=== PATIENT | female | born 1950 | race Caucasian/White ===

== ENCOUNTER 2016-08-25 12:53 | Emergency (ER) | payer MEDICARE ==
[2016-08-25 13:14] VITALS: BP 135/62
--- NOTE | 2016-08-25 13:38 | UC ---
Knee Pain HPI - HPI Summary HPI Summary: right knee pain and swelling x 2 days no known injury , - History of Current Complaint Chief Complaint: UCLowerExtremity Stated Complaint: RIGHT KNEE PAIN Time Seen by Provider: 08/25/16 13:28 Hx Obtained From: Patient Onset/Duration: Gradual Onset, Lasting Days - 2, Still Present Severity Initially: Moderate Severity Currently: Severe Character: Aching Aggravating Factor(s): Movement, Weight Bearing, Prolonged Standing, Stairs Alleviating Factor(s): Rest, Position, Cold Associated Signs And Symptoms: Positive: Swelling. Negative: Redness, Bruising , Fever, Weakness, Numbness, Tingling - Allergies/Home Medications Allergies/Adverse Reactions: Allergies Allergy/AdvReac Type Severity Reaction Status Date / Time Codeine Allergy GI Upset Verified 08/25/16 13:14 anesthesia Allergy vomitting Uncoded 08/25/16 13:16 ane AdvReac violently Uncoded 08/25/16 13:16 ill Home Medications: Home Medications Levothyroxine TAB* [Synthroid 125 MCG TAB*] 08/25/16 [History] Sitagliptin/Metform 50/500(NF) [Janumet 50/500 (NF)] 08/25/16 [History] PMH/Surg Hx/FS Hx/Imm Hx Previously Healthy: Yes - Surgical History Surgical History: Yes Surgery Procedure, Year, and Place: Lymphectomy L arm - Family History Known Family History: Negative: Diabetes - Social History Alcohol Use: None Substance Use Type: None Smoking Status (MU): Former Smoker Review of Systems Constitutional: Negative Skin: Negative Eyes: Negative ENT: Negative Respiratory: Negative Musculoskeletal: Arthralgia - right knee pain All Other Systems Reviewed And Are Negative: Yes Physical Exam Triage Information Reviewed: Yes Appearance: Well-Appearing, No Pain Distress, Well-Nourished Vital Signs: Initial Vital Signs Temp 100.6 F 08/25/16 13:08 Pulse 95 08/25/16 13:08 Resp 18 08/25/16 13:08 BP 135/62 08/25/16 13:08 Pulse Ox 98 08/25/16 13:08 Vital Signs Reviewed: Yes Eyes: Positive: Conjunctiva Clear ENT: Positive: Normal ENT inspection, Hearing grossly normal, Pharynx normal Neck: Positive: Supple, Nontender, No Lymphadenopathy Respiratory: Positive: Chest non-tender, Lungs clear, Normal breath sounds Cardiovascular: Positive: RRR, No Murmur, Pulses Normal Musculoskeletal: Positive: Other: - right knee: + swelling, effusion , + diffuse tenderness, sever pain with flexion Knee Pain Course/Dx - Differential Dx/Diagnosis Provider Diagnoses: right knee pain. right knee effusion Discharge - Discharge Plan Condition: Stable Disposition: HOME Patient Education Materials: Swollen Knee Joint (ED) Referrals: Lizbeth Silverman NP [Primary Care Provider] - Gaetano Christopher MD [Medical Doctor] - As Soon As Possible
--- NOTE | 2016-08-25 13:55 | RAD ---
INDICATION: Atraumatic right knee pain and swelling COMPARISON: None TECHNIQUE: AP, lateral, tunnel, and sunrise views were obtained. FINDINGS: There is minor patellofemoral spurring. There is a small suprapatellar joint effusion. The bony structures, joint spaces, and soft tissues are otherwise unremarkable. IMPRESSION: MINOR PATELLOFEMORAL OSTEOARTHRITIS AND SMALL JOINT EFFUSION
== END 2016-08-25 14:23 | disposition home or self-care (01) ==
LOC: UCCORT 12:53
DX: M25.561 Pain in right knee (principal); M25.461 Effusion, right knee; Z88.4 Allergy status to anesthetic agent; Z88.5 Allergy status to narcotic agent; Z87.891 Personal history of nicotine dependence
CPT/HCPCS: 99211; G0463

== ENCOUNTER 2017-06-23 16:48 | Emergency (ER) | payer MEDICARE ==
--- OUTSIDE RECORDS SUMMARY | 2017-06-23 17:05 | XMS REPORT ---
:1950 External Reference #:[id number] Author Organization [facility] Address [address] [place] [address] Phone [phone] Care Team Providers Name Role Phone Areli Lan M.D. 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 Primary Care Physician Unavailable Payers Type Date Identification Numbers Payment Provider Subscriber Medicare Primary Policy Number: [id number] Medicare Adriana Kolb PayID: [id number] [address] [place] [address] Medigap Part B Policy Number: [id number] [facility] Adriana Kolb PayID: [id number] [address] [place] [address] Medigap Part B Effective: Policy Number: Ami Johnson 2015 [id number] Medicare [place] Expires: 2017 PayID: [id number] [address] [address] [place] [address] Problems Date Description Provider Status Onset: 11/25/2010 Type 2 diabetes mellitus DaveEUGENIE Keating Active Onset: 11/25/2010 Hypothyroidism EUGENIE Worley Active Onset: 11/25/2010 Malignant neoplasm of lower-outer Dave WhiteriverEUGENIE Active quadrant of female breast Onset: 11/05/2014 Gastroesophageal reflux disease Staci Barraza PA-C Active Onset: 11/05/2014 H/O: peptic ulcer Staci Barraza PA-C Active Note: 1980 Onset: 11/05/2014 Gout Staci Barraza PA-C Active Onset: 11/05/2014 Obesity Staci Barraza PA-C Active Onset: 11/25/2010 Chronic peptic ulcer without Dave Whiteriver, RPAC Inactive hemorrhage AND without perforation but with obstruction Inactive: 11/28/2014 Onset: 12/12/2014 Screening for malignant neoplasm of Jesse Earl M.D. Inactive colon Inactive: 06/12/2016 Note: colo to cecum 2014 Onset: 11/25/2010 Gout Dave Whiteriver, RPAC Inactive Inactive: 06/12/2016 Onset: 11/25/2010 Low back pain Dave Whiteriver, RPAC Resolved Resolved: 06/12/2016 Onset: 12/11/2015 Sprain of medial collateral ligament of Pedro Leone M.D. Resolved knee Resolved: 06/12/2016 Onset: 11/20/2015 Current tear of medial cartilage AND/OR Pedro Leone M.D. 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 Cigarette Use Never Smoked Cigarettes ETOH Use Denies alcohol use Smoking Patient is a former smoker Allergies, Adverse Reactions, Alerts Date Description Reaction Status Severity Comments 07/25/2014 Codeine active 07/25/2014 Keflex active 07/25/2014 Boniva active 07/25/2014 Aspirin active 07/25/2014 Quinine active 11/20/2015 Perfume active 11/20/2015 Chemicals active Medications Medication Date Status Form Strength Qnty SIG Indications Ordering Provider Freestyle Lite 05/12 Active Strips 100un Test its Fingerstick Sandeep Lan Blood Sugar In Am Fasting Metformin HCL 02/10 Active Tablets 500mg 180ta take one E11.9 bs tablet by Sandeep Lan mouth twice a day Levothyroxine 02/21 Active Tablets 112mcg 90tab take one E03.9 s tablet by Sandeep Lan mouth once daily Cinnamon Active 350mg twice a day Unknown /0000 [place] 3 00 Active Capsules 1000mg 1 cap by Unknown /0000 mouth every daily Complex Active 1 qd Unknown Vitamin /0000 Tradjenta 02/10 Hx Tablets 5mg 90tab 1 by mouth E11.9 s every day Sandeep Lan - 06/02 Azithromycin 09/02 Hx Tablets 250mg 6tabs 1 tab take 2 J15.9 tabs x daily Sandeep Lan - days then 1 12/16 for 4 Benzonatate 08/11 Hx Capsules 200mg 45cap 1 by mouth J06.Kim Singleton s three times Sandeep Lan - a day as 02/10 needed cough Guaifenesin 08/11 Hx Tablets 400mg 30tab 1 tab by Madai06Shelley BrownAreli s mouth every Sandeep Lan - 6 hours as 09/02 needed cough Vitamin D3 06/16 Hx Tablets 400Unit 1 by mouth Areli every day Sandeep Lan - 06/16 Vitamin D3 06/12 Hx Capsules [id number] 8caps 1 cap by E55.9 Areli mouth every Sandeep Lan - week x 8 Vitamin D3 05/20 Hx Capsules [id number] 4caps 1 tab by Areli Alanna mouth every Sandeep Lan - weekly 06/16 Ranitidine HCL 03/27 Hx Tablets 150mg 60tab take one K21.9 s tablet by Sandeep Lan - mouth twice 06/16 a day /2016 Azithromycin 07/28 Hx Tablets 250mg 6tabs 2 today then J02.9 1 a day for Narda, - 4 days M.DLiset 08/02 Freestyle 07/21 Hx Misc 100un use to check [facility] /2016 its blood sugar Narda, - dx: e11.9 MLisetDLiset 11/19 Lisinopril 06/09 Hx Tablets 2.5mg 90tab 1 by mouth E11.9 s every day Nahum Samaniego M.D. 11/05 Benzonatate 04/08 Hx Capsules 200mg 14cap one three R05 s times a day Narda, - as needed M.D. 04/19 for cough /2016 Azithromycin 04/08 Hx Tablets 250mg 6tabs 2 today then J04.0 1 a day for Narda - 4 days M.D. 04/13 Red Yeast Rice 12/10 Hx Tablets 600mg one a day E78.0 Hannah /2015 Nahum Samaniego M.D. 04/19 Vitamin B 12/10 Hx Tablets 1 by mouth E78.0 Hannah Complex every day Narda - M.D. 11/19 Freestyle Lite 08/08 Hx Strips 100un test blood E11.9 Hannah Test /2014 its sugar twice Nahum Samaniego a day M.D. 11/19 Azithromycin 07/25 Hx Tablets 250mg 11tab 2 tabs by 461.9 Hannah /2015 s mouth today Narda, then one tab M.D. by mouth daily Losartan 06/06 Hx Tablets 25mg 90tab 1 by mouth Sagar Samaniego s every day Nahum Young MD 11/06 Janumet 10/27 Hx Tablets 50-500mg 180ta 1 by mouth E11.9 Areli bs every day Sandeep Lan - 02/10 Aluminum-Magne Hx Suspension 200-200-2 20ml by Unknown sium-[place] /0000 0mg/5ML mouth q2 ne - hours as 11/06 needed burn Caltrate 600+D Hx Chewtabs 600-400mg 2 by mouth Unknown /0000 -Unit every day - 12/30 Womens 00/00 Hx Tablets once a day Unknown Multivitamin /0000 - 12/30 Prevident 5000 Hx Paste 1.1% Unknown Booster Plus /0000 - 09/02 Vitamin B-12 Hx Tablets 500mcg 1 by mouth Unknown /0000 every day - 05/12 Vitamin D3 Hx Capsules 2000Unit 2 caps daily E55.9 Unknown /0000 - 09/02 Immunizations CPT Code Status Date Vaccine Lot # [id number] Given 02/10/2017 Td Preservative Free For Use In Individuals 7 Yrs [id number] Or Older 11457 Given 12/30/2016 Pneumovax Injection [id number] Q2038 Given 12/18/2015 Influenza Vaccine (Fluzone) Age 3 And Older [id number] 72531 Given 06/10/2015 Pneumococcal Conjugate Vaccine 13 Valent For [id number] Intramuscular Use 73669 Given 10/07/2011 Zoster Vaccine Live Injection 52718 Given 01/08/2009 Pneumovax Injection 56711 Given 01/04/2007 flu vaccination 33183 Given 09/01/2006 Tdap injection 76112 Given 02/27/2004 flu vaccination 18935 Given 11/07/1996 Tetnus Injection 56121 Refused 03/08/2017 Influenza Virus Vaccine Quadrivalent Iiv4 Split Preser Free Id Vital Signs Date Vital Result Comment 06/02/2017 BP Systolic Sitting Left Arm 142 mmHg BP Diastolic Sitting Left Arm 78 mmHg Height 65 inches 5'5" Weight 173.50 lb BMI (Body Mass Index) 28.9 kg/m2 BSA (Body Surface Area) 1.86 m2 [place] body weight in kilograms 57 05/12/2017 BP Systolic Sitting Left Arm 126 mmHg BP Diastolic Sitting Left Arm 70 mmHg Height 63 inches 5'3" Weight 177.12 lb BMI (Body Mass Index) 31.4 kg/m2 BSA (Body Surface Area) 1.84 m2 [place] body weight in kilograms 52 03/08/2017 BP Systolic Sitting Left Arm 138 mmHg BP Diastolic Sitting Left Arm 74 mmHg Height 63 inches 5'3" Weight 175.38 lb BMI (Body Mass Index) 31.1 kg/m2 BSA (Body Surface Area) 1.83 m2 [place] body weight in kilograms 52 02/16/2017 BP Systolic Sitting Right Arm 152 mmHg BP Diastolic Sitting Right Arm 84 mmHg Body Temperature 97.3 F Height 63 inches 5'3" Weight 173.50 lb BMI (Body Mass Index) 30.7 kg/m2 BSA (Body Surface Area) 1.82 m2 [place] body weight in kilograms 52 02/10/2017 BP Systolic Sitting Left Arm 146 mmHg BP Diastolic Sitting Left Arm 74 mmHg Height 63 inches 5'3" Weight 173.00 lb BMI (Body Mass Index) 30.6 kg/m2 BSA (Body Surface Area) 1.82 m2 [place] body weight in kilograms 52 09/02/2016 BP Systolic Sitting Left Arm 134 mmHg BP Diastolic Sitting Left Arm 80 mmHg Body Temperature 97.7 F Height 63 inches 5'3" Weight 168.00 lb BMI (Body Mass Index) 29.8 kg/m2 BSA (Body Surface Area) 1.80 m2 [place] body weight in kilograms 52 08/11/2016 BP Systolic Sitting Left Arm 142 mmHg BP Diastolic Sitting Left Arm 90 mmHg Body Temperature 97.7 F Heart Rate 100 /min Respiratory Rate 24 /min Height 63 inches 5'3" Weight 167.25 lb BMI (Body Mass Index) 29.6 kg/m2 BSA (Body Surface Area) 1.79 m2 [place] body weight in kilograms 52 06/16/2016 BP Systolic Sitting Left Arm 130 mmHg BP Diastolic Sitting Left Arm 76 mmHg Body Temperature 97.3 F Heart Rate 90 /min Respiratory Rate 12 /min Height 63 inches 5'3" Weight 176.25 lb BMI (Body Mass Index) 31.2 kg/m2 BSA (Body Surface Area) 1.83 m2 05/14/2016 BP Systolic Sitting Left Arm 112 mmHg BP Diastolic Sitting Left Arm 62 mmHg Height 63 inches 5'3" Weight 175.00 lb BMI (Body Mass Index) 31.0 kg/m2 BSA (Body Surface Area) 1.83 m2 [place] body weight in kilograms 52 03/27/2016 BP Systolic 118 mmHg BP Diastolic 60 mmHg Heart Rate 89 /min Respiratory Rate 18 /min Height 63 inches 5'3" Weight 178.00 lb BMI (Body Mass Index) 31.5 kg/m2 BSA (Body Surface Area) 1.84 m2 [place] body weight in kilograms 52 O2 % BldC Oximetry 98 % 02/26/2016 Height 63 inches 5'3" Weight 177.00 lb BMI (Body Mass Index) 31.4 kg/m2 BSA (Body Surface Area) 1.84 m2 [place] body weight in kilograms 52 01/22/2016 Height 63 inches 5'3" Weight 175.00 lb BMI (Body Mass Index) 31.0 kg/m2 BSA (Body Surface Area) 1.83 m2 [place] body weight in kilograms 52 12/18/2015 BP Systolic Sitting Left Arm 130 mmHg BP Diastolic Sitting Left Arm 78 mmHg Heart Rate 88 /min Respiratory Rate 20 /min Height 63 inches 5'3" Weight 171.00 lb BMI (Body Mass Index) 30.3 kg/m2 BSA (Body Surface Area) 1.81 m2 [place] body weight in kilograms 52 11/20/2015 BP Systolic 112 mmHg BP Diastolic 70 mmHg Height 62.0 inches 5'2" Weight 171.00 lb BMI (Body Mass Index) 31.3 kg/m2 BSA (Body Surface Area) 1.79 m2 [place] body weight in kilograms 50 11/06/2015 BP Systolic Sitting Right Arm 5 mmHg BP Diastolic Sitting Right Arm 3 mmHg Heart Rate 80 /min Respiratory Rate 20 /min Height 63 inches 5'3" Weight 172.00 lb BMI (Body Mass Index) 30.5 kg/m2 BSA (Body Surface Area) 1.81 m2 [place] body weight in kilograms 52 07/29/2015 BP Systolic Sitting Left Arm 128 mmHg BP Diastolic Sitting Left Arm 74 mmHg Body Temperature 97.5 F Heart Rate 80 /min Respiratory Rate 18 /min Height 63 inches 5'3" Weight 173.00 lb BMI (Body Mass Index) 30.6 kg/m2 BSA (Body Surface Area) 1.82 m2 O2 % BldC Oximetry 94 % 06/19/2015 Height 63 inches 5'3" Weight 174.00 lb BMI (Body Mass Index) 30.8 kg/m2 BSA (Body Surface Area) 1.82 m2 06/10/2015 BP Systolic Sitting Right Arm 130 mmHg BP Diastolic Sitting Right Arm 72 mmHg Body Temperature 97.9 F Heart Rate 80 /min Respiratory Rate 19 /min Height 63 inches 5'3" Weight 173.00 lb BMI (Body Mass Index) 30.6 kg/m2 BSA (Body Surface Area) 1.82 m2 04/19/2015 BP Systolic 118 mmHg BP Diastolic 768 mmHg Body Temperature 99.4 F Height 63 inches 5'3" Weight 171.50 lb BMI (Body Mass Index) 30.4 kg/m2 BSA (Body Surface Area) 1.81 m2 04/08/2015 BP Systolic Sitting Left Arm 122 mmHg BP Diastolic Sitting Left Arm 70 mmHg Body Temperature 97.7 F Heart Rate 80 /min Respiratory Rate 20 /min Height 63 inches 5'3" Weight 172.00 lb BMI (Body Mass Index) 30.5 kg/m2 BSA (Body Surface Area) 1.81 m2 12/10/2014 BP Systolic Sitting Left Arm 114 mmHg BP Diastolic Sitting Left Arm 68 mmHg Heart Rate 80 /min Respiratory Rate 19 /min Height 63 inches 5'3" Weight 170.00 lb BMI (Body Mass Index) 30.1 kg/m2 BSA (Body Surface Area) 1.80 m2 11/06/2014 BP Systolic 130 mmHg BP Diastolic 100 mmHg Heart Rate 62 /min Height 63 inches 5'3" Weight 170.00 lb BMI (Body Mass Index) 30.1 kg/m2 BSA (Body Surface Area) 1.80 m2 09/11/2014 Height 63 inches 5'3" Weight 172.00 lb BMI (Body Mass Index) 30.5 kg/m2 BSA (Body Surface Area) 1.81 m2 08/08/2014 BP Systolic Sitting Left Arm 118 mmHg BP Diastolic Sitting Left Arm 74 mmHg Heart Rate 68 /min Respiratory Rate 19 /min Height 63 inches 5'3" Weight 169.00 lb BMI (Body Mass Index) 29.9 kg/m2 BSA (Body Surface Area) 1.80 m2 07/25/2014 BP Systolic Sitting Left Arm 142 mmHg BP Diastolic Sitting Left Arm 82 mmHg Body Temperature 98.7 F Height 63 inches 5'3" Weight 173.00 lb BMI (Body Mass Index) 30.6 kg/m2 BSA (Body Surface Area) 1.82 m2 06/06/2014 BP Systolic 122 mmHg BP Diastolic 74 mmHg Body Temperature 97.6 F Heart Rate 72 /min Respiratory Rate 19 /min Height 63 inches 5'3" Weight 167.00 lb 05/08/2014 BP Systolic 128 mmHg BP Diastolic 68 mmHg Body Temperature 100.6 F Height 63 inches 5'3" Weight 168.00 lb 03/13/2014 Height 63 inches 5'3" Weight 165.00 lb 03/07/2014 BP Systolic 130 mmHg BP Diastolic 72 mmHg Heart Rate 76 /min Height 63 inches 5'3" Weight 165.00 lb 12/27/2013 BP Systolic 120 mmHg BP Diastolic 64 mmHg Body Temperature 98.6 F Heart Rate 76 /min Height 63 inches 5'3" Weight 165.00 lb O2 % BldC Oximetry 98 % 12/12/2013 Height 63 inches 5'3" Weight 167.00 lb 11/15/2013 BP Systolic 120 mmHg BP Diastolic 64 mmHg Heart Rate 84 /min Height 63 inches 5'3" Weight 167.00 lb 11/14/2013 Height 63 inches 5'3" Weight 171.00 lb 10/27/2013 BP Systolic 138 mmHg BP Diastolic 74 mmHg Height 63 inches 5'3" Weight 170.00 lb 07/26/2013 BP Systolic 120 mmHg BP Diastolic 68 mmHg Heart Rate 76 /min Height 63 inches 5'3" Weight 175.00 lb 07/04/2013 Height 63 inches 5'3" Weight 178.00 lb 04/25/2013 BP Systolic 122 mmHg BP Diastolic 70 mmHg Height 63 inches 5'3" Weight 175.00 lb 02/14/2013 BP Systolic 118 mmHg BP Diastolic 72 mmHg Height 63 inches 5'3" Weight 174.00 lb 10/25/2012 Height 63 inches 5'3" Weight 170.00 lb 10/14/2012 BP Systolic 136 mmHg BP Diastolic 76 mmHg Weight 169.00 lb 06/22/2012 Height 63 inches 5'3" Weight 177.00 lb 06/14/2012 BP Systolic 122 mmHg BP Diastolic 72 mmHg Height 63 inches 5'3" Weight 174.00 lb 02/15/2012 BP Systolic 130 mmHg BP Diastolic 72 mmHg Weight 171.00 lb 11/17/2011 BP Systolic 132 mmHg BP Diastolic 72 mmHg Weight 167.00 lb 09/29/2011 Height 63 inches 5'3" Weight 166.00 lb 08/11/2011 Height 63 inches 5'3" Weight 168.00 lb 08/03/2011 BP Systolic 132 mmHg BP Diastolic 72 mmHg Height 63 inches 5'3" Weight 168.00 lb 07/27/2011 BP Systolic 116 mmHg BP Diastolic 72 mmHg Body Temperature 98.0 F Height 63 inches 5'3" Weight 168.00 lb 07/14/2011 Height 63 inches 5'3" Weight 174.00 lb 06/29/2011 BP Systolic 132 mmHg BP Diastolic 74 mmHg Height 63 inches 5'3" Weight 174.00 lb 06/24/2011 BP Systolic 142 mmHg BP Diastolic 80 mmHg Height 63 inches 5'3" Weight 170.00 lb 06/10/2011 BP Systolic 118 mmHg BP Diastolic 62 mmHg Height 62 inches 5'2" Weight 171.00 lb 03/10/2011 Height 62 inches 5'2" Weight 168.00 lb 03/06/2011 BP Systolic 112 mmHg BP Diastolic 66 mmHg Body Temperature 96.8 F Height 62 inches 5'2" Weight 168.00 lb 12/09/2010 Height 62 inches 5'2" Weight 164.00 lb 11/25/2010 Height 62 inches 5'2" Weight 164.00 lb Results Test Date Test Result H/L Range Note Glycohemoglobin A1c 05/12/2017 Glycohemoglobin (A1c) 7.7 % High 4.2-6.3 1 , 2 eAG 174 mg/dL 1 LDL Cholesterol Profile 05/12/2017 Cholesterol 179 mg/dL <200 1, 3 Triglycerides 346 mg/dL High <150 1, 4 HDL Cholesterol 38 mg/dL Low >40 1, 5 LDL-Cholesterol 72 mg/dL < 100 1, 6 Comprehensive Metabolic Panel 05/12/2017 Glucose 149 mg/dL High 74-106 1 BUN 13 mg/dL 7-18 1 Creatinine 0.8 mg/dL 0.6-1.3 1 Glom Filtration Rate, Estimate >60 mL/min >60 1 If >60 mL/min >60 1, 7 BUN/Creat 16.2 ratio 1 Sodium 139 mmol/L 136-145 1 Potassium 4.2 mmol/L 3.5-5.1 1 Chloride 102 mmol/L 98-107 1 Carbon Dioxide 28 mmol/L 21-32 1 Anion Gap 9 mEq/L 8-16 1 Calcium 9.5 mg/dL 8.5-10.1 1 Total Protein 8.0 g/dL 6.4-8.2 1 Albumin 3.8 g/dL 3.4-5.0 1 Globulin 4.2 g/dL 1.9-4.3 1 Alb/Glob 0.9 ratio 1 Bilirubin,Total 0.5 mg/dL 0.2-1.0 1 Sgot/Ast 29 U/L 15-37 1 SGPT/Alt 52 U/L 12-78 1 Alkaline Phosphatase 104 U/L 45-117 1 Glycohemoglobin A1c 12/30/2016 Glycohemoglobin (A1c) 7.5 % High 4.2-6.3 8 , 9 eAG 169 mg/dL 8 LDL Cholesterol Profile 12/30/2016 Cholesterol 184 mg/dL <200 8, 10 Triglycerides 274 mg/dL High <150 8, 11 HDL Cholesterol 37 mg/dL Low >40 8, 12 LDL-Cholesterol 92 mg/dL < 100 8, 13 Reflex add FT3? Y 8 Reflex add FT4? Y 8 Microalb/Creat Ratio,Random 12/30/2016 Microalbumin,Urine 7.4 mg/L < 20.0 8 Microalbumin/Creatinine Ratio 6.8 ug/mgCrt < 30.0 8 Urine Creatinine Conc 109 mg/dL 8 TSH Reflex FT4 And/Or FT3 12/30/2016 Thyroid Stim Hormone 0.47 uIU/mL 0.30-4.20 8 Reflex add FT3? Y 8 Reflex add FT4? Y 8 Laboratory test finding 12/30/2016 Hepatitis C < 0.1 s/corat 0.0-0.9 8, 14 Antibody Comprehensive Metabolic 12/30/2016 Glucose 84 mg/dL 74-106 8 Panel BUN 9 mg/dL 7-18 8 Creatinine 0.6 mg/dL 0.6-1.3 8 Glom Filtration Rate, Estimate >60 mL/min >60 8 If >60 mL/min >60 8, 15 BUN/Creat 15.0 ratio 8 Sodium 140 mmol/L 136-145 8 Potassium 3.7 mmol/L 3.5-5.1 8 Chloride 105 mmol/L 98-107 8 Carbon Dioxide 28 mmol/L 21-32 8 Anion Gap 7 mEq/L Low 8-16 8 Calcium 9.0 mg/dL 8.5-10.1 8 Total Protein 7.9 g/dL 6.4-8.2 8 Albumin 4.0 g/dL 3.4-5.0 8 Globulin 3.9 g/dL 1.9-4.3 8 Alb/Glob 1.0 ratio 8 Bilirubin,Total 0.4 mg/dL 0.2-1.0 8 Sgot/Ast 18 U/L 15-37 8 SGPT/Alt 34 U/L 12-78 8 Alkaline Phosphatase 115 U/L 45-117 8 Reflex add FT3? Y 8 Reflex add FT4? Y 8 CBS W/Automated Diff 05/14/2016 White Blood Count 8.1 K/uL 3.1-10.7 16 Red Blood Count 4.80 M/uL 3.90-5.40 16 Hemoglobin 14.7 gm/dL 11.6-15.8 16 Hematocrit 43.1 % 36.0-46.1 16 Mean Cell Volume 89.8 fl 80.9-99.0 16 Mean Corpuscular HGB 30.6 pg 25.9-32.7 16 Mean Corpuscular HGB Conc 34.1 g/dL 30.8-34.3 16 Platelet Count 264 K/uL 150-400 16 Red Cell Distri Width SD 41.0 fl 3-47 16 Red Cell Distri Width %CV 12.7 % 11.7-14.4 16 Mean Platelet Volume 10.9 fL 8.9-12.4 16 Neut% 42.8 % 40.4-72.8 16 Lymph % 46.5 % High 20.0-42.0 16 [place] % 9.2 % 4.3-13.2 16 Eo% 1.0 % 0.0-6.6 16 Bas% 0.5 % 0.0-1.1 16 Neut# 3.45 K/uL 1.8-7.0 16 Lymph # 3.75 K/uL 1.0-4.0 16 [place] # 0.74 K/uL 0.3-0.9 16 Eos # 0.08 K/uL 0.0-0.5 16 Baso # 0.04 K/uL 0.0-0.1 16 Comprehensive Metabolic Panel 05/14/2016 Glucose 209 mg/dL High 74-106 16 BUN 9 mg/dL 7-18 16 Creatinine 0.9 mg/dL 0.6-1.3 16 Glom Filtration Rate, Estimate >60 mL/min >60 16 If >60 mL/min >60 16, 17 BUN/Creat 10.0 ratio 16 Sodium 140 mmol/L 136-145 16 Potassium 3.7 mmol/L 3.5-5.1 16 Chloride 102 mmol/L 98-107 16 Carbon Dioxide 29 mmol/L 21-32 16 Anion Gap 9 mEq/L 8-16 16 Calcium 9.1 mg/dL 8.5-10.1 16 Total Protein 7.7 g/dL 6.4-8.2 16 Albumin 3.8 g/dL 3.4-5.0 16 Globulin 3.9 g/dL 1.9-4.3 16 Alb/Glob 1.0 ratio 16 Bilirubin,Total 0.5 mg/dL 0.2-1.0 16 Sgot/Ast 22 U/L 15-37 16 SGPT/Alt 43 U/L 12-78 16 Alkaline Phosphatase 91 U/L 45-117 16 Reflex add FT3? Y 16 Reflex add FT4? Y 16 Glycohemoglobin A1c 05/14/2016 Glycohemoglobin (A1c) 6.7 % High 4.2-6.3 16, 18 eAG 146 mg/dL 16 Laboratory test 05/14/2016 Vitamin D,25-Hydroxy 27.7 ng/mL Low 30.0-100.0 16, 19 finding TSH Reflex FT4 05/14/2016 Thyroid Stim Hormone 0.57 uIU/mL 0.30-4.20 16 And/Or FT3 Reflex add FT3? Y 16 Reflex add FT4? Y 16 Glycohemoglobin A1c 12/18/2015 Glycohemoglobin (A1c) 6.7 % High 4.2-6.3 20, 21 eAG 146 mg/dL 20 @[facility] Pat Id: [id number] 20 @[facility] Req #: [id number] 20 Microalb/Creat Ratio,Random 12/18/2015 Microalbumin,Urine 7.7 mg/L < 20.0 20 Microalbumin/Creatinine Ratio 7.3 ug/mgCrt < 30.0 20 Urine Creatinine Conc 106 mg/dL 20 @[facility] Pat Id: [id number] 20 @[facility] Req #: [id number] 20 Laboratory test finding 07/29/2015 Throat Strep Screen See Note 22 Laboratory test finding 06/10/2015 Thyroid Stim Hormone 0.63 uIU/mL 0.36- 3.74 Basic Metabolic Panel 06/10/2015 Glucose 150 mg/dL High 74-106 BUN 13 mg/dL 7-18 Creatinine 0.8 mg/dL 0.6-1.3 Glom Filtration Rate, Estimate >60 mL/min >60 If >60 mL/min >60 23 BUN/Creat 16.2 ratio Sodium 138 mmol/L 136-145 Potassium 3.9 mmol/L 3.5-5.1 Chloride 103 mmol/L 98-107 Carbon Dioxide 28 mmol/L 21-32 Anion Gap 7 mEq/L Low 8-16 Calcium 8.5 mg/dL 8.5-10.1 Glycohemoglobin A1c 06/10/2015 Glycohemoglobin (A1c) 6.5 % High 4.2-6.3 24 eAG 140 mg/dL LDL Cholesterol Profile 06/10/2015 Cholesterol 162 mg/dL 150-200 25 Triglycerides 191 mg/dL High 50-150 26 HDL Cholesterol 34 mg/dL Low 60-150 27 LDL-Cholesterol 90 mg/dL 75-100 28 Liver Function Tests 06/10/2015 Total Protein 7.6 g/dL 6.4-8.2 Albumin 3.7 g/dL 3.4-5.0 Globulin 3.9 g/dL 1.9-4.3 Alb/Glob 0.9 ratio Bilirubin,Total 0.5 mg/dL 0.2-1.0 Bilirubin,Direct 0.1 mg/dL 0.0-0.2 Bilirubin,Indirect 0.4 mg/dL 0.0-0.9 Sgot/Ast 18 U/L 15-37 SGPT/Alt 37 U/L 12-78 Alkaline Phosphatase 79 U/L 45-117 LDL Cholesterol Profile 12/10/2014 Cholesterol 181 mg/dL 150-200 29 Triglycerides 207 mg/dL High 50-150 30 HDL Cholesterol 34 mg/dL Low 60-150 31 LDL-Cholesterol 106 mg/dL High 75-100 32 Liver Function Tests 12/10/2014 Total Protein 7.5 g/dL 6.4-8.2 Albumin 3.7 g/dL 3.4-5.0 Globulin 3.8 g/dL 1.9-4.3 Alb/Glob 1.0 ratio Bilirubin,Total 0.5 mg/dL 0.2-1.0 Bilirubin,Direct < 0.1 mg/dL 0.0-0.2 Bilirubin,Indirect 0.4 mg/dL 0.0-0.9 Sgot/Ast 18 U/L 15-37 SGPT/Alt 36 U/L 12-78 Alkaline Phosphatase 92 U/L 45-117 Basic Metabolic Panel 12/10/2014 Glucose 101 mg/dL 74-106 BUN 11 mg/dL 7-18 Creatinine 0.8 mg/dL 0.6-1.3 Glom Filtration Rate, Estimate >60 mL/min >60 If >60 mL/min >60 33 BUN/Creat 13.7 ratio Sodium 138 mmol/L 136-145 Potassium 4.1 mmol/L 3.5-5.1 Chloride 105 mmol/L 98-107 Carbon Dioxide 27 mmol/L 21-32 Anion Gap 6 mEq/L Low 8-16 Calcium 8.5 mg/dL 8.5-10.1 Glycohemoglobin A1c 12/10/2014 Glycohemoglobin (A1c) 6.8 % High 4.2-6.3 34 eAG 148 mg/dL Laboratory test finding 11/28/2014 Polyp Colon And/Or See Note 35 Rectum Laboratory test finding 08/08/2014 Microalbumin,Random < 5.0 mg/L &lt ; 20.0 Urine Basic Metabolic Panel 08/08/2014 Glucose 110 mg/dL High 74-106 BUN 9 mg/dL 7-18 Creatinine 0.9 mg/dL 0.6-1.3 Glom Filtration Rate, Estimate >60 mL/min >60 If >60 mL/min >60 36 BUN/Creat 10.0 ratio Sodium 140 mmol/L 136-145 Potassium 3.7 mmol/L 3.5-5.1 Chloride 105 mmol/L 98-107 Carbon Dioxide 27 mmol/L 21-32 Anion Gap 8 mEq/L 8-16 Calcium 8.4 mg/dL Low 8.5-10.1 Glycohemoglobin A1c 08/08/2014 Glycohemoglobin (A1c) 6.5 % High 4.2-6.3 37 eAG 140 mg/dL Laboratory test finding 08/08/2014 TSH Reflex FT4 and/or 0.95 uIU/mL 0.36 -3.74 38 FT3 Influenza A/B Antigen 05/08/2014 Influenza A Antigen Negative (Negative) Influenza B Antigen Negative (Negative) 39 Basic Metabolic Panel 03/07/2014 Anion Gap 9 mEq/L 8-16 BUN 13 mg/dL 7-18 BUN/Creat 14.4 ratio Calcium 9.4 mg/dL 8.5-10.1 Carbon Dioxide 31 mmol/L 21-32 Chloride 103 mmol/L 98-107 Creatinine 0.9 mg/dL 0.6-1.3 Glom Filtration Rate, Estimate >60 mL/min >60 Glucose 130 mg/dL High 74-106 If >60 mL/min >60 40 Potassium 4.3 mmol/L 3.5-5.1 Sodium 139 mmol/L 136-145 Glycohemoglobin A1c 03/07/2014 Glycohemoglobin (A1c) 6.2 % 4.2-6.3 41 eAG 131 mg/dL LDL Cholesterol Profile 03/07/2014 Cholesterol 193 mg/dL 150-200 42 HDL Cholesterol 41 mg/dL Low 60-150 43 LDL-Cholesterol 120 mg/dL High 75-100 44 Triglycerides 160 mg/dL High 50-150 45 Liver Function Tests 03/07/2014 Alb/Glob 1.1 ratio Albumin 3.9 g/dL 3.4-5.0 Alkaline Phosphatase 95 U/L 45-117 Bilirubin,Direct < 0.1 mg/dL 0.0-0.2 Bilirubin,Indirect 0.5 mg/dL 0.0-0.9 Bilirubin,Total 0.6 mg/dL 0.2-1.0 Globulin 3.7 g/dL 1.9-4.3 SGPT/Alt 23 U/L 12-78 Sgot/Ast 14 U/L Low 15-37 46 Total Protein 7.6 g/dL 6.4-8.2 Basic Metabolic Panel 10/27/2013 Anion Gap 10 mEq/L 8-16 BUN 16 mg/dL 5-23 BUN/Creat 22.8 ratio Calcium 9.4 mg/dL 8.5-10.1 Carbon Dioxide 28 mEq/L 18-29 Chloride 104 mmol/L 98-107 Creatinine 0.7 mg/dL 0.5-1.4 Glom Filtration Rate, Estimate >60 mL/min >60 Glucose 142 mg/dL High 76-115 If >60 mL/min >60 47 Potassium 4.0 mmol/L 3.5-5.1 Sodium 138 mmol/L 136-145 Glycohemoglobin A1c 10/27/2013 Glycohemoglobin (A1c) 7.0 % High 4.8-6.0 48 eAG 154 mg/dL Laboratory test 07/26/2013 Microalbumin,Random Urine < 6.0 mg/L 0.0- 18.5 finding Laboratory test 07/26/2013 Fit Hemocult negative finding Laboratory test 07/04/2013 Free T4 1.40 ng/dL 0.71-1.85 finding Thyroid Stim Hormone 0.48 uIU/mL Low 0.49-4.67 49 Basic Metabolic Panel 07/04/2013 Anion Gap 11 mEq/L 8-16 BUN 9 mg/dL 5-23 BUN/Creat 12.8 ratio Calcium 9.2 mg/dL 8.5-10.1 Carbon Dioxide 28 mEq/L 18-29 Chloride 104 mmol/L 98-107 Creatinine 0.7 mg/dL 0.5-1.4 Glom Filtration Rate, Estimate >60 mL/min >60 Glucose 143 mg/dL High 76-115 If >60 mL/min >60 50 Potassium 4.2 mmol/L 3.5-5.1 Sodium 139 mmol/L 136-145 Glycohemoglobin A1c 07/04/2013 Glycohemoglobin (A1c) 7.5 % High 4.8-6.0 51 eAG 169 mg/dL LDL Cholesterol Profile 07/04/2013 Cholesterol 186 mg/dL 120-200 HDL Cholesterol 34 mg/dL 29-83 LDL-Cholesterol 112 mg/dL 62-185 Triglycerides 198 mg/dL 16-231 Laboratory test finding 02/14/2013 Free T4 1.34 ng/mL High 0.61-1.24 Hemoglobin A1c 6.8 % High Less than 6.0 52 TSH (Thyroid Stimulating Horm) 0.31 miu/mL Low 0.34-5.60 Basic Metabolic Panel 02/14/2013 Anion Gap 8.0 mmol/L 2-11 BUN/Creatinine Ratio 12.9 8-20 Blood Urea Nitrogen 9 mg/dL 6-24 Calcium 9.4 mg/dL 8.1-9.9 Chloride 103 mmol/L 101-111 Co2 Carbon Dioxide 28.0 mmol/L 22-32 Creatinine 0.70 mg/dL 0.50-1.40 Egfr 109.0 >60 53 Egfr Non- 84.8 >60 Glucose 105 mg/dL High 70-100 Potassium 4.1 mmol/L 3.5-5.0 Sodium 139 mmol/L 133-145 Laboratory test finding 10/14/2012 Hemoglobin A1c 6.6 % High Less than 6.0 54 Basic Metabolic Panel 10/14/2012 Anion Gap 7.0 mmol/L 2-11 BUN/Creatinine Ratio 14.3 8-20 Blood Urea Nitrogen 10 mg/dL 6-24 Calcium 9.5 mg/dL 8.1-9.9 Chloride 103 mmol/L 101-111 Co2 Carbon Dioxide 28.0 mmol/L 22-32 Creatinine 0.70 mg/dL 0.50-1.40 Egfr 109.0 >60 55 Egfr Non- 84.8 >60 Glucose 115 mg/dL High 70-100 Potassium 4.3 mmol/L 3.5-5.0 Sodium 138 mmol/L 133-145 Lipid Profile (Trig/Chol/HDL) 10/14/2012 Cholesterol 159 mg/dL Less than 200 Cholesterol/HDL Ratio 4.1 Average 1-4.44 HDL Cholesterol 39 mg/dL Low 40-60 56 LDL Cholesterol 99.6 Less Than 100 57 Triglycerides 102 mg/dL 40-200 Urine Microalbumin Random 06/14/2012 Ur Microalbumin (Mg/L) 4.0 mg/L 58 Urine Creatinine 110.0 mg/dL Urine Microalbumin/Creatinine 3.6 ug/mg Less Than 31 Laboratory test finding 06/14/2012 Hemoglobin A1c 7.2 % High Less than 6.0 59 TSH (Thyroid Stimulating Horm) 0.31 miu/mL Low 0.34-5.60 Basic Metabolic Panel 06/14/2012 Anion Gap 7.0 mmol/L 2-11 BUN/Creatinine Ratio 16.7 8-20 Blood Urea Nitrogen 10 mg/dL 6-24 Calcium 9.8 mg/dL 8.1-9.9 Chloride 102 mmol/L 101-111 Co2 Carbon Dioxide 30.0 mmol/L 22-32 Creatinine 0.60 mg/dL 0.50-1.40 Egfr 130.3 >60 60 Egfr Non- 101.3 >60 Glucose 119 mg/dL High 70-100 Potassium 4.3 mmol/L 3.5-5.0 Sodium 139 mmol/L 133-145 Manual Differential 06/14/2012 Eosinophils % 4 % 0-6 Lymphocytes % 43 % 25-47 Monocytes % 8 % 0-13 Neutrophil % 45 % 38-83 RBC Morphology Normal Normal CBC Auto Diff 06/14/2012 Abs Basophils 0 10^3/uL 0-0.2 Abs Eosinophils 0.1 10^3/uL 0-0.6 Abs Lymphocytes 3.3 10^3/uL 1.0-4.8 Abs Monocytes 0.6 10^3/uL 0-0.8 Abs Neutrophils 3.0 10^3/uL 1.5-7.7 Abs Nucleated RBC 0 10^3/uL Hematocrit 44 % 35-47 Hemoglobin 14.9 g/dL 12.0-16.0 Mean Corpuscular HGB Conc 34 g/dL 31-36 Mean Corpuscular Hemoglobin 30 pg 27-31 Mean Corpuscular Volume 89 fL 80-97 Mean Platelet Volume 8 um3 7.4-10.4 Platelet Count 240 10^3/uL 150-450 Red Blood Count 4.89 10^6/uL 4.0-5.4 Red Cell Distribution Width 13 % 10.5-15 White Blood Count 7.1 10^3/uL 4.8-10.8 Basic Metabolic Panel 02/16/2012 Anion Gap 6.0 mmol/L 2-11 BUN/Creatinine Ratio 25.0 High 8-20 Blood Urea Nitrogen 15 mg/dL 6-24 Calcium 9.4 mg/dL 8.1-9.9 Chloride 105 mmol/L 101-111 Co2 Carbon Dioxide 27.0 mmol/L 22-32 Creatinine 0.60 mg/dL 0.50-1.40 Egfr 130.7 >60 61 Egfr Non- 101.6 >60 Glucose 168 mg/dL High 70-100 Potassium 4.5 mmol/L 3.5-5.0 Sodium 138 mmol/L 133-145 Laboratory test finding 02/16/2012 Hemoglobin A1c 6.5 % High Less than 6.0 62 Basic Metabolic Panel 11/17/2011 Anion Gap 4.0 mmol/L 2-11 63 BUN 11 mg/dL 6-24 BUN/Creatinine Ratio 18.3 8-20 Calcium 9.1 mg/dL 8.1-9.9 Chloride 107 mmol/L 101-111 Co2 (Carbon Dioxide) 28.0 mmol/L 22-32 Creatinine 0.6 mg/dL 0.50-1.40 Glucose 107 mg/dL High 70-100 One Over Creatinine 1.66 Potassium 4.1 mmol/L 3.5-5.0 Sodium 139 mmol/L 135-145 eGFR 130.7 > 60 64 eGFR Non- 101.6 > 60 Laboratory test finding 11/17/2011 Hemoglobin A1c 6.5 % High Less Than 6.0 65 Basic Metabolic Panel 08/03/2011 Anion Gap 3.0 mmol/L 2-11 66 BUN 9 mg/dL 6-24 BUN/Creatinine Ratio 12.9 8-20 Calcium 9.2 mg/dL 8.1-9.9 Chloride 105 mmol/L 101-111 Co2 (Carbon Dioxide) 30.0 mmol/L 22-32 Creatinine 0.7 mg/dL 0.50-1.40 Glucose 105 mg/dL High 70-100 One Over Creatinine 1.42 Potassium 3.8 mmol/L 3.5-5.0 Sodium 138 mmol/L 135-145 eGFR 109.4 > 60 67 eGFR Non- 85.1 > 60 CBC Auto Diff 08/03/2011 Hematocrit 40 % 35-47 Hemoglobin 14.0 g/dL 12.0-16.0 Mean Corpuscular HGB Cone 35 g/dL 32-36 Mean Corpuscular Hemoglob 31 pg 27-31 Mean Corpuscular Volume 88 um3 79-97 Mean Platelet Volume 8.9 um3 7.4-10.4 68 Platelet Count 291 CUMM 150-450 Red Cell Count 4.53 CUMM 4.2-5.4 Redcell Distribution WDTH 12 % 10.5-15 White Blood Count 6.2 CUMM 4.8-10.8 Lipid Profile (Trig/Chol/HDL) 08/03/2011 Cholesterol 162 mg/dL Less Than 200 69 Cholesterol/HDL Ratio 5.23 AVERAGE High 1-4.44 High Density Lipoprotein 31 mg/dL Low 40-60 70 Low Density Lipoprotein 97 mg/dL Less Than 100 71 Triglyceride 172 mg/dL 40-200 Liver Function Panel 08/03/2011 Albumin 3.9 GM/DL 3.2-5.2 Albumin/Globulin Ratio 1.4 1-3 Alkaline Phosphatase 83 U/L 30-110 Alt (SGPT) 27 U/L 14-54 Ast (Sgot) 19 U/L 12-42 Bilirubin Direct 0.0 mg/dL Low 0.1-0.5 Bilirubin Total 0.7 mg/dL 0.4-1.5 72 Globulin 2.8 GM/DL 2-4 Indirect Bilirubin (See Note) mg/dL 0.3-1.0 73 Total Protein 6.7 GM/DL 6.2-8.1 Manual Differential 08/03/2011 Absolute Neutrophil Count 2.90 Band Neutrophil 2 % 0-8 Eosinophil 2 % 0-6 Lymphocyte 43 % 25-47 Monocyte 7 % 0-13 Polysegmented Neutrophil 46 % 38-83 RBC Morphology Normal Laboratory test finding 08/03/2011 Cytology Pap See Note 74 Laboratory test finding 08/03/2011 Hemoglobin A1c 7.3 % High Less Than 6.0 75 TSH 0.39 MIU/ML 0.34-5.60 Laboratory test finding 06/29/2011 Surgical Pathology See Note 76 1 E11.9 2 Elevated levels of HbA1c suggest the need for more aggressive treatment of glycemia. The [place] [employer] recommends that a primary goal of therapy should be a HbA1c of <7% and that physicians should re-evaluate the treatment regimen in patients with HbA1c values consistently >8%. 3 Reference Guidelines*: Desirable: ........... < 200 mg/dL Borderline High: ..... 200-239 mg/dL High: ................ >=240 mg/dL * The National Cholesterol Education Program (NCEP) 4 Reference Guidelines*: Normal: ............. < 150 mg/dL Borderline High: .... 150-199 mg/dL High: ............... 200-499 mg/dL Very High: .......... > 500 mg/dL * Source: National Cholesterol Education Program (NCEP) 5 Reference Guidelines*: Low HDL: ..... < 40 mg/dL Normal: ..... 40-60 mg/dL Desirable: ... > 60 mg/dL *The National Cholesterol Education Program(NCEP) 6 Reference Guidelines*: Optimal:........... <100 mg/dL Near Optimal....... 100-129 mg/dL Borderline High.... 130-159 mg/dL High............... 160-189 mg/dL Very High.......... >=190 mg/dL * Source: National Cholesterol Education Program (NCEP) 7 Note: Persistent reduction for 3 months or more in an eGFR <60 mL/min/1.73 m2 defines CKD. Patients with eGFR values >/=60 mL/min/1.73 m2 may also have CKD if evidence of persistent proteinuria is present. The original MDRD equation for estimated GFR is not valid for patients less than 18 years of age. Additional information may be found at [email or web address]. 8 E11.9 E03.9 Z11.59 9 Elevated levels of HbA1c suggest the need for more aggressive treatment of glycemia. The [place] [employer] recommends that a primary goal of therapy should be a HbA1c of <7% and that physicians should re-evaluate the treatment regimen in patients with HbA1c values consistently >8%. 10 Reference Guidelines*: Desirable: ........... < 200 mg/dL Borderline High: ..... 200-239 mg/dL High: ................ >=240 mg/dL * The National Cholesterol Education Program (NCEP) 11 Reference Guidelines*: Normal: ............. < 150 mg/dL Borderline High: .... 150-199 mg/dL High: ............... 200-499 mg/dL Very High: .......... > 500 mg/dL * Source: National Cholesterol Education Program (NCEP) 12 Reference Guidelines*: Low HDL: ..... < 40 mg/dL Normal: ..... 40-60 mg/dL Desirable: ... > 60 mg/dL *The National Cholesterol Education Program(NCEP) 13 Reference Guidelines*: Optimal:........... <100 mg/dL Near Optimal....... 100-129 mg/dL Borderline High.... 130-159 mg/dL High............... 160-189 mg/dL Very High.......... >=190 mg/dL * Source: National Cholesterol Education Program (NCEP) 14 INFCE Result Units: s/co ratio Negative: < 0.8 Indeterminate: 0.8 - 0.9 Positive: > 0.9 The CDC recommends that a positive HCV antibody result be followed up with a HCV Nucleic Acid Amplification test (102390). Performed at: - [facility] [id number] Bull Driver: Mona Robbins MD, Phone: [phone] 15 Note: Persistent reduction for 3 months or more in an eGFR <60 mL/min/1.73 m2 defines CKD. Patients with eGFR values >/=60 mL/min/1.73 m2 may also have CKD if evidence of persistent proteinuria is present. The original MDRD equation for estimated GFR is not valid for patients less than 18 years of age. Additional information may be found at [email or web address]. 16 R53.83 17 Note: Persistent reduction for 3 months or more in an eGFR <60 mL/min/1.73 m2 defines CKD. Patients with eGFR values >/=60 mL/min/1.73 m2 may also have CKD if evidence of persistent proteinuria is present. The original MDRD equation for estimated GFR is not valid for patients less than 18 years of age. Additional information may be found at [email or web address]. 18 Elevated levels of HbA1c suggest the need for more aggressive treatment of glycemia. The [place] [employer] recommends that a primary goal of therapy should be a HbA1c of <7% and that physicians should re-evaluate the treatment regimen in patients with HbA1c values consistently >8%. 19 Vitamin D deficiency has been defined by the [place] [employer] and an Endocrine Society practice guideline as a level of serum 25-OH vitamin D less than 20 ng/mL (1,2). The Endocrine Society went on to further define vitamin D insufficiency as a level between 21 and 29 ng/mL (2). 1. IOM ([place] [employer]). 2010. Dietary reference intakes for calcium and D. [place]: The National Academies Press. 2. Cody MF, Axel NC, Ryan KELLY, et al. Evaluation, treatment, and prevention of vitamin D deficiency: an Endocrine Society clinical practice guideline. JCEM. 2010; 96(7):1911-30. Performed at: RN - [facility] [address] [id number] Bull Driver: Mona Robbins MD, Phone: [phone] 20 E11.9 21 Elevated levels of HbA1c suggest the need for more aggressive treatment of glycemia. The [place] [employer] recommends that a primary goal of therapy should be a HbA1c of <7% and that physicians should re-evaluate the treatment regimen in patients with HbA1c values consistently >8%. 22 NO BETA STREPTOCOCCI ISOLATED 23 Note: Persistent reduction for 3 months or more in an eGFR <60 mL/min/1.73 m2 defines CKD. Patients with eGFR values >/=60 mL/min/1.73 m2 may also have CKD if evidence of persistent proteinuria is present. The original MDRD equation for estimated GFR is not valid for patients less than 18 years of age. Additional information may be found at [email or web address]. 24 Elevated levels of HbA1c suggest the need for more aggressive treatment of glycemia. The [place] [employer] recommends that a primary goal of therapy should be a HbA1c of <7% and that physicians should re-evaluate the treatment regimen in patients with HbA1c values consistently >8%. 25 Reference Guidelines*: Desirable: ........... < 200 mg/dL Borderline High: ..... 200-239 mg/dL High: ................ >=240 mg/dL * The National Cholesterol Education Program (NCEP) 26 Reference Guidelines*: Normal: ............. < 150 mg/dL Borderline High: .... 150-199 mg/dL High: ............... 200-499 mg/dL Very High: .......... > 500 mg/dL * Source: National Cholesterol Education Program (NCEP) 27 Reference Guidelines*: Low HDL: ..... < 40 mg/dL Normal: ..... 40-60 mg/dL Desirable: ... > 60 mg/dL *The National Cholesterol Education Program(NCEP) 28 Reference Guidelines*: Optimal:........... <100 mg/dL Near Optimal....... 100-129 mg/dL Borderline High.... 130-159 mg/dL High............... 160-189 mg/dL Very High.......... >=190 mg/dL * Source: National Cholesterol Education Program (NCEP) 29 Reference Guidelines*: Desirable: ........... < 200 mg/dL Borderline High: ..... 200-239 mg/dL High: ................ >=240 mg/dL * The National Cholesterol Education Program (NCEP) 30 Reference Guidelines*: Normal: ............. < 150 mg/dL Borderline High: .... 150-199 mg/dL High: ............... 200-499 mg/dL Very High: .......... > 500 mg/dL * Source: National Cholesterol Education Program (NCEP) 31 Reference Guidelines*: Low HDL: ..... < 40 mg/dL Normal: ..... 40-60 mg/dL Desirable: ... > 60 mg/dL *The National Cholesterol Education Program(NCEP) 32 Reference Guidelines*: Optimal:........... <100 mg/dL Near Optimal....... 100-129 mg/dL Borderline High.... 130-159 mg/dL High............... 160-189 mg/dL Very High.......... >=190 mg/dL * Source: National Cholesterol Education Program (NCEP) 33 Note: Persistent reduction for 3 months or more in an eGFR <60 mL/min/1.73 m2 defines CKD. Patients with eGFR values >/=60 mL/min/1.73 m2 may also have CKD if evidence of persistent proteinuria is present. The original MDRD equation for estimated GFR is not valid for patients less than 18 years of age. Additional information may be found at [email or web address]. 34 Elevated levels of HbA1c suggest the need for more aggressive treatment of glycemia. The [place] [employer] recommends that a primary goal of therapy should be a HbA1c of <7% and that physicians should re-evaluate the treatment regimen in patients with HbA1c values consistently >8%. 35 OPERATION/PROCEDURE Colonoscopy DIAGNOSIS: "COLON, RECTUM, BIOPSY": - HYPERPLASTIC POLYP. - LYMPHOID AGGREGATE. /kate 1006 GROSS The specimen is received in formalin in one properly labeled container with the patient's name and accession number designated, "RECTAL POLYPS". The specimen consists of three pieces of soft, mo, rubbery tissue measuring 0.6 x 0.4 x 0.2 cm. Submitted entirely, one cassette. /clf PRE OPERATIVE DIAGNOSIS Screening colon REVIEW CODE CODE: I Signed Electronically signed KARLA CHILD MD [id number] 36 Note: Persistent reduction for 3 months or more in an eGFR <60 mL/min/1.73 m2 defines CKD. Patients with eGFR values >/=60 mL/min/1.73 m2 may also have CKD if evidence of persistent proteinuria is present. The original MDRD equation for estimated GFR is not valid for patients less than 18 years of age. Additional information may be found at [email or web address]. 37 Elevated levels of HbA1c suggest the need for more aggressive treatment of glycemia. The [place] [employer] recommends that a primary goal of therapy should be a HbA1c of <7% and that physicians should re-evaluate the treatment regimen in patients with HbA1c values consistently >8%. 38 QUERY: Reflex add FT3? N QUERY: Reflex add FT4? Y 39 Please Note: A POSITIVE result for influenza A and/or B antigen does not rule out a co-infection with other pathogens or identify any specific influenza A virus subtype. A NEGATIVE result for influenza A and/or B antigen does not preclude influenza virus infection and should not be the sole basis for treatment or other management decisions, since the antigen present in the specimen may be below the detection limit of the test. A NEGATIVE result is PRESUMPTIVE and it is recommended these results be confirmed by virus culture or an FDA-cleared influenza A and B molecular assay. 40 Note: Persistent reduction for 3 months or more in an eGFR <60 mL/min/ 1.73 m2 defines CKD. Patients with eGFR values >/=60 mL/min/1.73 m2 may also have CKD if evidence of persistent proteinuria is present. The original MDRD equation for estimated GFR is not valid for patients less than 18 years of age. Additional information may be found at [email or web address]. 41 Elevated levels of HbA1c suggest the need for more aggressive treatment of glycemia. The [place] [employer] recommends that a primary goal of therapy should be a HbA1c of <7% and that physicians should re-evaluate the treatment regimen in patients with HbA1c values consistently >8%. 42 Reference Guidelines*: Desirable: ........... < 200 mg/dL Borderline High: ..... 200-239 mg/dL High: ................ >=240 mg/dL * The National Cholesterol Education Program (NCEP) 43 Reference Guidelines*: Low HDL: ..... < 40 mg/dL Normal: ..... 40-60 mg/ dL Desirable: ... > 60 mg/dL *The National Cholesterol Education Program(NCEP ) 44 Reference Guidelines*: Optimal:........... <100 mg/dL Near Optimal....... 100-129 mg/dL Borderline High.... 130-159 mg/dL High............... 160-189 mg/dL Very High.......... >=190 mg/dL * Source: National Cholesterol Education Program (NCEP) 45 Reference Guidelines*: Normal: ............. < 150 mg/dL Borderline High : .... 150-199 mg/dL High: ............... 200-499 mg/dL Very High: .......... > 500 mg/dL * Source: National Cholesterol Education Program (NCEP) 46 Values below the stated reference ranges of AST and ALT can be seen in normal populations. Clinical correlation is suggested. 47 Note: Persistent reduction for 3 months or more in an eGFR <60 mL/min/ 1.73 m2 defines CKD. Patients with eGFR values >/=60 mL/min/1.73 m2 may also have CKD if evidence of persistent proteinuria is present. The original MDRD equation for estimated GFR is not valid for patients less than 18 years of age. Additional information may be found at [email or web address]. 48 A1c value between 5.7% and 6.4% is considered at increased risk for diabetes. A1c value greater than 6.5 % is considered essentially diagnostic for Type II diabetes. Current guidelines recommend a treatment goal of <7% for diabetic patients. This method will measure glycosylated hemoglobin variants, HbS, HbG , HbH, HbWayne, HbC, HbE, etc. Other hemoglobin- opathies may give incorrect results with this test. 49 A low TSH should not be the sole basis for diagnosing primary hyperthyroidism, or primary hypopituitary function. Additional tests are suggested for confirmation. 50 Note: Persistent reduction for 3 months or more in an eGFR <60 mL/min/ 1.73 m2 defines CKD. Patients with eGFR values >/=60 mL/min/1.73 m2 may also have CKD if evidence of persistent proteinuria is present. The original MDRD equation for estimated GFR is not valid for patients less than 18 years of age. Additional information may be found at [email or web address]. 51 A1c value between 5.7% and 6.4% is considered at increased risk for diabetes. A1c value greater than 6.5 % is considered essentially diagnostic for Type II diabetes. Current guidelines recommend a treatment goal of <7% for diabetic patients. This method will measure glycosylated hemoglobin variants, HbS, HbG , HbH, HbWayne, HbC, HbE, etc. Other hemoglobin- opathies may give incorrect results with this test. 52 Therapeutic target for the treatment of diabetes Mellitus patients is <7 % HBA1C, and in selective patients <6.0%.Please refer to [place] [employer] Diabetic care guidelines for further information. 53 Because ethnic data is not always readily available, this report includes an eGFR for both -Americans and non- Americans. The National Kidney Disease Education Program (NKDEP) does not endorse the use of the MDRD equation for patients that are not between the ages of 18 and 70, are , have extremes of body size, muscle mass, or nutritional status, or are non- or non-. According to the National Kidney Foundation, irrespective of diagnosis, the stage of the disease is based on the level of kidney function: Stage Description GFR(mL/min/1.73 m(2)) 1 Kidney damage with normal or decreased GFR 90 2 Kidney damage with mild decrease in GFR 60- 89 3 Moderate decrease in GFR 30-59 4 Severe decrease in GFR 15-29 5 Kidney failure <15 (or dialysis) 54 Therapeutic target for the treatment of diabetes Mellitus patients is <7 % HBA1C, and in selective patients <6.0%.Please refer to [place] [employer] Diabetic care guidelines for further information. 55 Because ethnic data is not always readily available, this report includes an eGFR for both -Americans and non- Americans. The National Kidney Disease Education Program (NKDEP) does not endorse the use of the MDRD equation for patients that are not between the ages of 18 and 70, are , have extremes of body size, muscle mass, or nutritional status, or are non- or non-. According to the National Kidney Foundation, irrespective of diagnosis, the stage of the disease is based on the level of kidney function: Stage Description GFR(mL/min/1.73 m(2)) 1 Kidney damage with normal or decreased GFR 90 2 Kidney damage with mild decrease in GFR 60- 89 3 Moderate decrease in GFR 30-59 4 Severe decrease in GFR 15-29 5 Kidney failure <15 (or dialysis) 56 HDL Interpretation: Undesirable: High Risk: Less than 40 mg/dL Desirable: Low Risk: Greater than 60 mg/dL 57 LDL Interpretation: Low Risk Optimal Level: LDL Less than 100 mg/dL Near or Above Optimal: LDL 100-129 mg/dL Borderline High Risk: LDL 130-159 mg/dL High Risk : LDL 160-189 mg/dL Very High Risk: LDL Greater than 189 mg/dL 58 Microalbuminuria in a random sample is defined as: Microalbumin/Creatinine ratio of 30-299 ug/mg. 59 Therapeutic target for the treatment of diabetes Mellitus patients is <7 % HBA1C, and in selective patients <6.0%.Please refer to [place] [employer] Diabetic care guidelines for further information. 60 Because ethnic data is not always readily available, this report includes an eGFR for both -Americans and non- Americans. The National Kidney Disease Education Program (NKDEP) does not endorse the use of the MDRD equation for patients that are not between the ages of 18 and 70, are , have extremes of body size, muscle mass, or nutritional status, or are non- or non-. According to the National Kidney Foundation, irrespective of diagnosis, the stage of the disease is based on the level of kidney function: Stage Description GFR(mL/min/1.73 m(2)) 1 Kidney damage with normal or decreased GFR 90 2 Kidney damage with mild decrease in GFR 60- 89 3 Moderate decrease in GFR 30-59 4 Severe decrease in GFR 15-29 5 Kidney failure <15 (or dialysis) 61 Because ethnic data is not always readily available, this report includes an eGFR for both -Americans and non- Americans. The National Kidney Disease Education Program (NKDEP) does not endorse the use of the MDRD equation for patients that are not between the ages of 18 and 70, are , have extremes of body size, muscle mass, or nutritional status, or are non- or non-. According to the National Kidney Foundation, irrespective of diagnosis, the stage of the disease is based on the level of kidney function: Stage Description GFR(mL/min/1.73 m(2)) 1 Kidney damage with normal or decreased GFR 90 2 Kidney damage with mild decrease in GFR 60- 89 3 Moderate decrease in GFR 30-59 4 Severe decrease in GFR 15-29 5 Kidney failure <15 (or dialysis) 62 Therapeutic target for the treatment of diabetes Mellitus patients is <7 % HBA1C, and in selective patients <6.0%.Please refer to [place] [employer] Diabetic care guidelines for further information. 63 Anion gap measurement may be of limited value in the presence of any alkalosis, especially in a combined acid base disorder. . 64 Because ethnic data is not always readily available, this report includes an eGFR for both -Americans and non- Americans. The National Kidney Disease Education Program (NKDEP) does not endorse the use of the MDRD equation for patients that are not between the ages of 18 and 70, are , have extremes of body size, muscle mass, or nutritional status, or are non- or non-. According to the National Kidney Foundation, irrespective of diagnosis, the stage of the disease is based on the level of kidney function: Stage Description GFR(mL/min/1.73 m(2)) 1 Kidney damage with normal or decreased GFR 90 2 Kidney damage with mild decrease in GFR 60- 89 3 Moderate decrease in GFR 30-59 4 Severe decrease in GFR 15-29 5 Kidney failure <15 (or dialysis) 65 THERAPEUTIC TARGET FOR THE TREATMENT OF DIABETES MELLITUS PATIENTS IS <7 % HBA1C, AND IN SELECTIVE PATIENTS <6.0%. PLEASE REFER TO [place] [employer] [place] [employer] DIABETIC CARE GUIDELINES FOR FURTHER INFORMATION. 66 Anion gap measurement may be of limited value in the presence of any alkalosis, especially in a combined acid base disorder. . 67 Because ethnic data is not always readily available, this report includes an eGFR for both -Americans and non- Americans. The National Kidney Disease Education Program (NKDEP) does not endorse the use of the MDRD equation for patients that are not between the ages of 18 and 70, are , have extremes of body size, muscle mass, or nutritional status, or are non- or non-. According to the National Kidney Foundation, irrespective of diagnosis, the stage of the disease is based on the level of kidney function: Stage Description GFR(mL/min/1.73 m(2)) 1 Kidney damage with normal or decreased GFR 90 2 Kidney damage with mild decrease in GFR 60- 89 3 Moderate decrease in GFR 30-59 4 Severe decrease in GFR 15-29 5 Kidney failure <15 (or dialysis) 68 Lymphocytosis % 69 CHOLESTEROL INTERPRETATION: Desirable: Less than 200 MG/DL Borderline-High Risk: 200-239 MG/DL High-Risk: 240 MG/DL and over 70 HDL INTERPRETATION: Undesirable: High Risk: Less than 40 MG/DL Desirable: Low Risk: Greater than 60 MG/DL 71 LDL INTERPRETATION: Low Risk Optimal Level: LDL Less than 100 MG/DL Near or Above Optimal: LDL 100-129 MG/DL Borderline High Risk: LDL 130-159 MG/DL High Risk : LDL 160-189 MG/DL Very High Risk: LDL Greater than 189 MG/DL 72 A metabolite of Naproxen, O-desmethylnaproxen, has been shown to interfere with the Jendrassik-Edwardo method for measuring total bilirubin. Samples from patients who have taken Naproxen have shown spurious elevation in total bilirubin levels. 73 UNABLE TO CALCULATE IND.BILI D.BILI IS <0.1 Please note updated reference range, effective 10/10/09 74 [facility]ology [facility] [address], [address] [place] [address] CYTOLOGY REPORT Name: Adriana Kolb : 1950 (Age: 61) Sex: F Location: [facility] Date Collected: 08/03/2011 Billing #: [id number] Date Received: 08/03/2011 Physician(s): DAVE CAMACHO Source of Specimen: VAGINAL THIN PREP Clinical Information: Date of Last Menstrual Period: None Provided Menstrual History: Post menopausal: 12/20 Treatment History: Hysterectomy: 2006 Specimen Adequacy: SATISFACTORY FOR EVALUATION. General Categorization: NEGATIVE FOR INTRAEPITHELIAL LESION OR MALIGNANCY. wendy Electronic Signature KERON Reza (ASCP) Reported: 08/05/2011 [facility] ICD-9 Code(s) V72.31 V76.47 75 THERAPEUTIC TARGET FOR THE TREATMENT OF DIABETES MELLITUS PATIENTS IS <7 % HBA1C, AND IN SELECTIVE PATIENTS <6.0%. PLEASE REFER TO [place] [employer] [place] [employer] DIABETIC CARE GUIDELINES FOR FURTHER INFORMATION. 76 [facility] [address], [address] [place] [address] SURGICAL PATHOLOGY REPORT Name: Adriana Kolb Pathology #: [id number] : 1950 (Age: 61) Sex: F Location: [facility] Soc. Sec. #: [id number] Date of Procedure: 06/29/2011 Billing #: [id number] Date Received: 06/30/2011 Physician(s): HANNAH SAMANIEGO MD Specimen(s) Received: Behind left ear Clinical Information: Lesion behind left ear, painful. Gross Description: Specimen received in formalin and labeled with the patient's name is a mo-taylor hair bearing polypoid tissue fragment measuring 0.4 cm in greatest dimension. The specimen is submitted in toto. (1 block) jib /MTM Diagnosis: SKIN BEHIND LEFT EAR - INTRADERMAL NEVUS. Reported: 07/01/2011 Electronic Signature cf Macario An MD [facility] Technical Laboratory [facility] ICD -9 Codes: 216.9 Procedures Date CPT Code Description Status Comment 02/10/2017 88341 Shaving of epiderm or Completed dermal lesion,single lesion,trnk,0.6-1.0cm 12/18/2016 82408 Eye Exam New Patient Completed Comprehensive 06/25/2016 Mammogram Completed Document: 06/30/16 - Screening Mammogram Bilateralbirads 2 06/16/2016 Diabetic Foot Exam Completed in office, Dr. Lan, normal 06/11/2015 Mammogram Completed 11/28/2014 51301 Colonoscopy With Biopsy Completed Forceps 11/28/2014 05247 Colonoscopy With Biopsy Completed Forceps 11/28/2014 96692 EGD With Biopsy Completed 11/28/[address] Earlocument: 11/28/14 - Colonoscopy, patient states next is 202403/13/2014 71522 Mammography Unilateral Completed 02/17/13 12/27/2013 13794 Pulse Oximetry Completed 08/07/2011 Bone Mineral Density Test Completed osteopenia 06/29/2011 90840 Exc Other Benign Lesion Completed Trunk,Arms Or Legs 0.5CM Or Less 09/04/2002 89699 EKG Interpretation And Completed Report Only 09/02/1995 79345 Exc.Jarrell.Lesion/0.6 To 1.0 Completed cm Encounters Type Date Location Provider CPT E/M Dx Office Visit 05/12/2017 9:30a Family Medicine Areli Lan M.D. 09831 E11.9 E03.9 E78.5 M77.11 Office Visit 03/08/2017 1:45p Family Medicine ANTONY Johnson 01174 M77.11 Office Visit 02/16/2017 3:00p Family Medicine Areli Lan M.D. 56427 Z48.02 Office Visit 02/10/2017 10:45a Family Medicine Areli Lan M.D. 80252 D48.5 E11.9 Z23 Office Visit 09/02/2016 9:45a Family Medicine Areli Lan M.D. 25163 J15.9 Office Visit 08/11/2016 11:00a Family Medicine Areli Lan M.D. 70989 J06.9 Office Visit 06/16/2016 8:30a Family Medicine Areli Lan M.D. 28283 E11.9 E03.9 E55.9 K21.9 Office Visit 05/14/2016 3:00p Family Medicine Areli Lan M.D. 90664 R53.83 Office Visit 03/27/2016 2:45p Family Medicine Areli Lan M.D. 40530 K21.9 Office Visit 02/26/2016 9:45a Orthopaedic Office Pedro Leone M.D. 64344 S83.412A Office Visit 01/22/2016 9:45a Orthopaedic Office Pedro Leone M.D. 64923 S83.412A Office Visit 12/18/2015 2:30p Family Darrion Lan M.D. 49205 E11.9 E03.9 E78.5 Z23 Office Visit 12/11/2015 10:30a Orthopaedic Office Pedro Leone M.D. 85157 S83.412A Office Visit 11/20/2015 9:15a Orthopaedic Office Pedro Leone M.D. 82452 S83.232A Office Visit 11/06/2015 9:15a Family Medicine Kim Silverman, 51970 M23.92 DISTRICT CAPTAIN W18.40xA Office Visit 07/29/2015 11:15a Family Medicine Hannah Samaniego M.D. 41832 J02.9 Office Visit 06/10/2015 9:00a Family Medicine Hannah Samaniego M.D. G0439 Z00.00 E11.9 E03.9 Z23 Office Visit 04/19/2015 10:30a Family Medicine Areli Lan M.D. 50836 J06.9 Office Visit 04/08/2015 3:00p Family Medicine Hannah Samaniego M.D. 70784 J04.0 J02.9 R05 Office Visit 12/10/2014 9:30a [facility] Hannah Samaniego M.D. 17523 E11.9 E03.9 E78.0 Office Visit 11/06/2014 9:00a ZORAIDA Barraza PA-C 52743 V76.51 530.81 V12.71 Office Visit 08/08/2014 9:00a [facility] Hannah Samaniego M.D. 96809 250.00 244.9 Office Visit 07/25/2014 2:30p [facility] Dave Torrez, [facility] 57003 461.9 Plan of Care Future Appointment(s):06/30/2017 8:45 am - Areli Lan M.D. at [facility]23/02/2018 8:15 am - Jaspal Calixto MD at [facility]27/14/2018 - Areli Lan M.D.R53.83 Other fatigueNew Labs:CBS W/Automated DiffComments:Has increasing fatigue, falling asleep in the chairDenies any sleep issues, no SOB/ CP, no disruptionto moodDiscussed could be multifactoral but will do blood workBe more active, continue with diet andexerciseFollow up:as scheduled in . Vitamin D deficiency, unspecifiedNew Labs:Vitamin D,25- HydroxyComments:will check labs, has been low tfbfncF04.9 Hypothyroidism, unspecifiedNew Labs:TSH Reflex FT4 And/Or HG5Ntousuem:will recheck levels
[2017-06-23 17:15] VITALS: BP 136/73
[2017-06-23] MEDS ORDERED: Acetaminophen TAB* 325 MG PO ONE (17:20)
--- NOTE | 2017-06-23 17:25 | UC ---
Throat Pain/Nasal Eusebio HPI - HPI Summary HPI Summary: Pt c/o sudden onset of fever, chills, sore throat, fatigue, body aches X 1 day. - History of Current Complaint Chief Complaint: UCGeneralIllness Stated Complaint: SORE THROAT/EAR ACHE Time Seen by Provider: 06/23/17 17:19 Hx Obtained From: Patient Hx Last Menstrual Period: None ?: No Onset/Duration: Sudden Onset, Still Present Severity: Moderate Pain Intensity: 8 Associated Signs & Symptoms: Positive: Dysphagia, Fever - Epiglottits Risk Factors Epiglottis Risk Factors: Negative - Allergies/Home Medications Allergies/Adverse Reactions: Allergies Allergy/AdvReac Type Severity Reaction Status Date / Time codeine AdvReac GI Upset Verified 06/23/17 17:16 anesthesia Allergy vomitting Uncoded 06/23/17 17:16 ane AdvReac violently Uncoded 06/23/17 17:16 ill Home Medications: Home Medications metFORMIN* [Glucophage 500 MG TAB *] 500 mg PO BID 06/23/17 [History Confirmed 06/23/17] PMH/Surg Hx/FS Hx/Imm Hx Previously Healthy: Yes Endocrine History: Diabetes - Surgical History Surgical History: Yes Surgery Procedure, Year, and Place: Lymphectomy L arm. hysterectomy. bladder suspension - Family History Known Family History: Negative: Diabetes - Social History Occupation: Retired Lives: With Family Alcohol Use: None Substance Use Type: None Smoking Status (MU): Former Smoker Have You Smoked in the Last Year: No Review of Systems Constitutional: Fever, Chills, Fatigue Skin: Negative Eyes: Negative ENT: Sore Throat Respiratory: Negative Cardiovascular: Negative Gastrointestinal: Negative Genitourinary: Negative Motor: Negative Neurovascular: Negative Musculoskeletal: Myalgia Neurological: Negative Psychological: Negative Is Patient Immunocompromised?: No All Other Systems Reviewed And Are Negative: Yes Physical Exam Triage Information Reviewed: Yes Appearance: Ill-Appearing Vital Signs: Initial Vital Signs Temp 102.4 F 06/23/17 17:09 Pulse 128 06/23/17 17:09 Resp 18 06/23/17 17:09 BP 136/73 06/23/17 17:09 Pulse Ox 96 06/23/17 17:09 Eye Exam: Normal ENT Exam: Other ENT: Positive: Pharyngeal erythema Dental Exam: Normal Neck exam: Normal Respiratory Exam: Normal Cardiovascular Exam: Normal Cardiovascular: Positive: Tachycardia Musculoskeletal Exam: Normal Neurological Exam: Normal Psychological Exam: Normal Skin Exam: Normal Diagnostics - Laboratory Diagnostic Studies Completed/Ordered: rapid flu: negative. rapid strep: negative Throat Pain/Nasal Course/Dx - Differential Dx/Diagnosis Differential Diagnosis/HQI/PQRI: Influenza, Pharyngitis, Tonsillitis, URI Provider Diagnoses: pharyngitis Discharge - Sign-Out/Discharge Documenting (check all that apply): Discharge - Discharge Plan Condition: Stable Disposition: HOME Prescriptions: Penicillin VK 500 MG TAB(NF) [Penicillin VK 500 mg Tab] 500 mg PO Q8H #30 tab Patient Education Materials: Pharyngitis (ED), Fever in Adults (ED) Referrals: Areli Lan MD [Primary Care Provider] - If Needed - Billing Disposition and Condition Condition: STABLE Disposition: HOME
== END 2017-06-23 18:04 | disposition home or self-care (01) ==
LOC: UCCORT 16:48
DX: J02.9 Acute pharyngitis, unspecified (principal); Z87.891 Personal history of nicotine dependence; Z88.5 Allergy status to narcotic agent; Z88.4 Allergy status to anesthetic agent
CPT/HCPCS: 87502; 87651; 99212; A9270-GY; G0463